=== PATIENT | female | born 1940 | race Two or more races ===

== ENCOUNTER 2020-12-11 08:34 | Inpatient (IN) | payer MEDICAID, OTHER ==
[~2020-12-11] VITALS: Ht 152.4 cm; Wt 56.5 kg
--- NOTE | 2020-12-11 08:43 | NUR ---
EKG PERFORMED IN TRIAGE.
--- NOTE | 2020-12-11 09:18 | NUR ---
BUSINESS INFORMATION ANALYST: PT TO [facility] FROM [facility]
--- NOTE | 2020-12-11 09:44 | NUR ---
PT TO ROOM 34 W/ C/O SOB AND COUGH X 2 WEEKS. PT STATES SHE JUST CAME BACK FROM [facility] 1 MONTH AGO AND HAS BEEN HACING SX X 2 WEEKS. PT DENIES N/V/D AND SORE THROAT. STATES SHE FEELS MORE FATIGUED THAN NORMAL. PER PT HAS GOTTEN TESTED TWICE FOR COVID CAME BACK NEGATIVE. PT STATES SHE WALKS BUT LESS NOW SECONDARY TO ILLNESS. EDUCATED ON IMPORTANCE OF WALKING TO HELP EXPAND LUNGS. PT RESTING ON GURNEY. NADN. MONITORS APPLIED. VSS. WARM BLANKET PROVIDED. CALL LIGHT IN REACH. PIV INITIATED.
--- NOTE | 2020-12-11 10:30 | NUR ---
PT RESTING ON GURNEY. NADN. PETE.
[2020-12-11 10:45] LABS: BASOPHILS % (AUTO) 0 % (0-1); EOSINOPHILS % (AUTO) 1 % (1-7); LYMPHOCYTES % (AUTO) 9 % (22-44); MEAN CORPUSCULAR HEMOGLOBIN 28.9 pg (27.0-34.8); MEAN CORPUSCULAR HGB CONC 33.9 g/dL (32.4-35.8); MEAN PLATELET VOLUME 7.7 fL (7.4-10.4); MONOCYTES % (AUTO) 10 % (2-9); NEUTROPHILS % (AUTO) 80 % (42-75); PLATELET COUNT 340 x10^3/uL (130-400); RED BLOOD COUNT 4.84 x10^6/uL (3.82-5.3); RED CELL DISTRIBUTION WIDTH 13.4 % (9.6-15.2)
[2020-12-11 10:51] LABS: ALBUMIN 2.4 g/dL (3.4-5.0); ANION GAP 10 mmol/L (5-15); CALCIUM 8.5 mg/dL (8.5-10.1); CHLORIDE 94 mmol/L (98-107)
[2020-12-11 11:01] LABS: ALANINE AMINOTRANSFERASE 14 U/L (12-78); ALKALINE PHOSPHATASE 95 U/L (45-117); BILIRUBIN,TOTAL 0.7 mg/dL (0.2-1.0); CREATININE 0.78 mg/dL (0.55-1.02)
--- NOTE | 2020-12-11 11:29 | NUR ---
PT UP TO RESTROOM AND BACK TO BED. REPOSITIONED ON RCINEBAR FOR COMFORT. NADN. PETE.
--- NOTE | 2020-12-11 11:53 | NUR ---
DISCUSSED CXR W/ ERP DR. CROUCH. AWAITING POC.
[2020-12-11] MEDS ORDERED: AZITHROMYCIN 500 MG in SODIUM CHLORIDE 0.9% 250 ML IV ONE (12:00)
[2020-12-11] MEDS ORDERED: CEFTRIAXONE 1,000 MG in DEXTROSE 5% 50 ML IVPB ONE (12:00)
--- NOTE | 2020-12-11 12:25 | NUR ---
PT RESTING ON GURNEY. NADN. PETE.
--- NOTE | 2020-12-11 13:07 | NUR ---
REPORT GIVEN TO ROSAURA, INDERJIT RN. ALL QUESTIONS ANSWERED. AWAITING PT TRANSPORT.
[2020-12-11] MEDS ORDERED: LIDOCAINE 1%, 10ML ONE (13:40)
[2020-12-11] MEDS ORDERED: ONDANSETRON ODT 4 MG PO PRN (14:00)
[2020-12-11] MEDS ORDERED: ACETAMINOPHEN 500 MG TABLET PO PRN (14:00)
[2020-12-11] MEDS ORDERED: ONDANSETRON 2MG/ML, 2ML IVPush PRN (14:00)
[2020-12-11] MEDS ORDERED: POLYETHYLENE GLYCOL 17 GM PACKET PO PRN (14:00)
[2020-12-11 15:29] VITALS: BP 145/50
[2020-12-11] MEDS: CEFTRIAXONE 1,000 MG in DEXTROSE 5% 50 ML IVPB SCH (17:31)
[2020-12-11 19:00] VITALS: BP 158/84
[2020-12-11] MEDS: MELATONIN 5 MG TABLET PO PRN (21:26)
[2020-12-12 01:49] VITALS: BP 141/73
[2020-12-12 05:40] LABS: BASOPHILS % (AUTO) 1 % (0-1); EOSINOPHILS % (AUTO) 3 % (1-7); LYMPHOCYTES % (AUTO) 18 % (22-44); MEAN CORPUSCULAR HEMOGLOBIN 28.8 pg (27.0-34.8); MEAN CORPUSCULAR HGB CONC 34.1 g/dL (32.4-35.8); MEAN PLATELET VOLUME 7.3 fL (7.4-10.4); MONOCYTES % (AUTO) 13 % (2-9); NEUTROPHILS % (AUTO) 65 % (42-75); PLATELET COUNT 317 x10^3/uL (130-400); RED BLOOD COUNT 4.68 x10^6/uL (3.82-5.3); RED CELL DISTRIBUTION WIDTH 13.6 % (9.6-15.2)
[2020-12-12 05:49] LABS: CHLORIDE 98 mmol/L (98-107)
[2020-12-12 05:57] LABS: HCT (SEDRATE) 39.1 % (34.6-47.8)
[2020-12-12 06:14] LABS: ALANINE AMINOTRANSFERASE 13 U/L (12-78); ALKALINE PHOSPHATASE 86 U/L (45-117); ANION GAP 8 mmol/L (5-15); BILIRUBIN,TOTAL 0.6 mg/dL (0.2-1.0); CALCIUM 8.3 mg/dL (8.5-10.1); CREATININE 0.66 mg/dL (0.55-1.02); TOTAL PROTEIN 6.9 g/dL (6.4-8.2)
[2020-12-12] MEDS: SENNA/DOCUSATE TABLET PO SCH (09:45)
[2020-12-12] MEDS: AZITHROMYCIN 250 MG TABLET PO SCH (09:45)
[2020-12-12 10:08] VITALS: BP 103/69
[2020-12-12 16:11] VITALS: BP 121/78
[2020-12-12] MEDS: CEFTRIAXONE 1,000 MG in DEXTROSE 5% 50 ML IVPB SCH (17:27)
[2020-12-12 20:38] VITALS: BP 123/75
[2020-12-12] MEDS: MELATONIN 5 MG TABLET PO PRN (20:59)
[2020-12-13 03:30] VITALS: BP 117/75
[2020-12-13 07:58] VITALS: BP 131/76
[2020-12-13] MEDS: SENNA/DOCUSATE TABLET PO SCH (08:51)
[2020-12-13] MEDS: AZITHROMYCIN 250 MG TABLET PO SCH (08:51)
[2020-12-13 13:52] VITALS: BP 125/75
[2020-12-13] MEDS ORDERED: GUAIFENESIN/DM 200-20MG, 10ML UDC PO PRN (14:30)
[2020-12-13] MEDS: CEFTRIAXONE 1,000 MG in DEXTROSE 5% 50 ML IVPB SCH (18:37)
[2020-12-13] MEDS: MELATONIN 5 MG TABLET PO PRN (20:02)
[2020-12-13 20:03] VITALS: BP 146/91
[2020-12-14 01:05] VITALS: BP 147/78
[2020-12-14 06:03] LABS: BASOPHILS % (AUTO) 1 % (0-1); EOSINOPHILS % (AUTO) 2 % (1-7); LYMPHOCYTES % (AUTO) 17 % (22-44); MEAN CORPUSCULAR HEMOGLOBIN 28.9 pg (27.0-34.8); MEAN CORPUSCULAR HGB CONC 34.1 g/dL (32.4-35.8); MEAN PLATELET VOLUME 7.5 fL (7.4-10.4); MONOCYTES % (AUTO) 12 % (2-9); NEUTROPHILS % (AUTO) 68 % (42-75); PLATELET COUNT 303 x10^3/uL (130-400); RED BLOOD COUNT 4.37 x10^6/uL (3.82-5.3); RED CELL DISTRIBUTION WIDTH 13.3 % (9.6-15.2)
[2020-12-14 06:08] LABS: ANION GAP 3 mmol/L (5-15); CALCIUM 8.3 mg/dL (8.5-10.1); CHLORIDE 97 mmol/L (98-107)
[2020-12-14 06:12] LABS: ALANINE AMINOTRANSFERASE 11 U/L (12-78); ALKALINE PHOSPHATASE 83 U/L (45-117); BILIRUBIN,TOTAL 0.4 mg/dL (0.2-1.0); CREATININE 0.58 mg/dL (0.55-1.02); TOTAL PROTEIN 6.8 g/dL (6.4-8.2)
[2020-12-14] MEDS ORDERED: FUROSEMIDE 40 MG/4 ML IV ONE (06:30)
[2020-12-14 07:54] VITALS: BP 116/77
[2020-12-14] MEDS: AZITHROMYCIN 250 MG TABLET PO SCH (08:02)
[2020-12-14] MEDS: SENNA/DOCUSATE TABLET PO SCH (08:02)
[2020-12-14 13:08] VITALS: BP 113/78
[2020-12-14] MEDS ORDERED: LIDOCAINE 1%, 10ML ONE (14:01)
[2020-12-14] MEDS: CEFTRIAXONE 1,000 MG in DEXTROSE 5% 50 ML IVPB SCH (17:00)
[2020-12-14 19:34] VITALS: BP 117/71
[2020-12-14] MEDS: MELATONIN 5 MG TABLET PO PRN (20:54)
[2020-12-15 02:16] VITALS: BP 98/67
[2020-12-15 05:30] LABS: ANION GAP 6 mmol/L (5-15); CALCIUM 8.3 mg/dL (8.5-10.1); CHLORIDE 96 mmol/L (98-107); CREATININE 0.71 mg/dL (0.55-1.02)
[2020-12-15] MEDS ORDERED: LOPE2TAB26 PO (07:11)
[2020-12-15] MEDS ORDERED: FURO-93 PO (07:16)
[2020-12-15] MEDS: SENNA/DOCUSATE TABLET PO SCH (09:00)
[2020-12-15] MEDS: AZITHROMYCIN 250 MG TABLET PO SCH (10:46)
[2020-12-16 18:20] LABS: ANA SCREEN NEGATIVE (Negative)
== END 2020-12-15 18:00 | disposition home or self-care (01) | DRG 871 ==
LOC: ED 11:23 → 3N 15:16 → UNDOADMIN 15:16 → 3N 15:31
PROVIDERS: ADMIT Emergency Medicine; ATTEND Family Medicine
PROC: 0W9B3ZZ Drainage of Left Pleural Cavity, Percutaneous Approach (ICD-10-PCS; principal; 2020-12-11)
PROC: 0W9B3ZZ Drainage of Left Pleural Cavity, Percutaneous Approach (ICD-10-PCS; 2020-12-14)
DX: A41.9 Sepsis, unspecified organism (principal); J15.9 Unspecified bacterial pneumonia; J90 Pleural effusion, not elsewhere classified; E22.2 Syndrome of inappropriate secretion of antidiuretic hormone; G47.00 Insomnia, unspecified; I10 Essential (primary) hypertension; R09.02 Hypoxemia; R73.03 Prediabetes; Z20.822 Contact with and (suspected) exposure to COVID-19; Z82.5 Family history of asthma and other chronic lower respiratory diseases; Z86.73 Personal history of transient ischemic attack (TIA), and cerebral infarction without residual deficits
CPT/HCPCS: 32555; 36415; 82945; 83986; 84145; 89051; 96365; 99285; J3490; 71045; 71260; 80048; 80053; 82728; 83036; 83605; 83615; 84157; 85025; 85379; 85651; 86038; 86140; 87015; 87040; 87070; 87075; 87102; 87116; 87205; 87206; 88112; 88305; 93005; 93306; G0378; J0456; J0696; J1940; J2405; Q0162; U0005; J7050; U0003